=== PATIENT | male | born 1995 | race Two or more races ===

== ENCOUNTER 2022-09-16 22:32 | Emergency (ER) | payer SELFPAY | END 2022-09-16 23:20 | disposition left against medical advice (07) | LOC: EMS 22:36 | DX: R11.10 Vomiting, unspecified (principal); Z53.21 Procedure and treatment not carried out due to patient leaving prior to being seen by health care provider ==

== ENCOUNTER 2022-11-08 17:16 | Emergency (ER) | payer MEDICAID ==
[~2022-11-08] VITALS: Ht 177.8 cm; Wt 84.1 kg
[2022-11-08 17:31] VITALS: TEMP 98.2
[2022-11-08] MEDS ORDERED: CEPH-558 PO (19:37)
[2022-11-08 19:55] VITALS: BP 129/68; PULSE 76; RESP 18
== END 2022-11-08 19:55 | disposition home or self-care (01) ==
LOC: EMS 17:17
DX: N49.2 Inflammatory disorders of scrotum (principal); F17.210 Nicotine dependence, cigarettes, uncomplicated
CPT/HCPCS: 99283; Z7502

== ENCOUNTER 2022-12-07 22:39 | Emergency (ER) | payer MEDICAID ==
[~2022-12-07] VITALS: Ht 172.7 cm; Wt 85.0 kg
[~2022-12-07 22:39] MED LIST: CEPH-558 PO
[2022-12-07 22:50] VITALS: TEMP 98.5
[2022-12-08] MEDS ORDERED: ACETAMINOPHEN 325 MG TABLET PO ONE
[2022-12-08 00:18] VITALS: BP 136/74; PULSE 78; RESP 18
== END 2022-12-08 00:31 | disposition home or self-care (01) ==
LOC: EMS 22:39
DX: S92.901A Unspecified fracture of right foot, initial encounter for closed fracture (principal); X58.XXXA Exposure to other specified factors, initial encounter; Y93.89 Activity, other specified; Y92.89 Other specified places as the place of occurrence of the external cause; Y99.8 Other external cause status
CPT/HCPCS: 29540; 99284; 73610-TC; 73630-TC; Z7502; Z7610